=== PATIENT | male | born 1980 | race Hispanic/Latino ===

== ENCOUNTER 2025-01-24 02:32 | Emergency (ER) | payer SELFPAY ==
[~2025-01-24] VITALS: Ht 162.6 cm; Wt 78.9 kg
--- NOTE | 2025-01-24 03:07 | ERN ---
General Chief Complaint: Knee Injury/Swelling Stated Complaint: C/O PAIN TO RT KNEE RADIATING TO GROIN AREA. Time Seen by MD: 03:06 History of Present Illness Initial Comments Patient is a healthy 44-year-old male woke up from sleep with the pain in his right knee. When he tried to get up out of bed he fell onto the floor in the pain then started to radiat up to his groin. Was unable to dress himself and he had to rely on his girlfriend to help him get dressed and help him get to the emergency room. He has no other past medical history. Allergies: Coded Allergies: No Known Drug Allergies (Unverified Allergy, Unknown, 01/24/25) Past Medical History Past Medical History: Diabetes-Type II Past Surgical History: None Constitutional: (-) chills, (-) diaphoresis, (-) fever, (-) malaise, (-) weakness, (-) other documentation EENTM: (-) eye pain, (-) blurred vision, (-) tearing, (-) double vision, (-) ear pain, (-) ear discharge, (-) nose pain, (-) nose congestion, (-) throat pain, (-) Throat swelling, (-) mouth pain, (-) tooth pain, (-) mouth swelling, (-) other documentation Respiratory: (-) cough, (-) orthopnea, (-) short of breath, (-) stridor, (-) wheezing, (-) other documentation Cardiovascular: (-) chest pain, (-) edema, (-) palpitations, (-) syncope, (-) dyspnea on exertion, (-) other documentation Gastrointestinal/Abdominal: (-) nausea, (-) vomiting, (-) diarrhea, (-) abdominal pain, (-) abdominal distention, (-) constipation, (-) rectal bleeding, (-) dark stool/melena, (-) other documentation Musculoskeletal: (-) Neck pain, (-) back pain, (-) Flank Pain, (-) joint pain, (-) joint swelling, (-) muscle pain, (-) muscle stiffness, (-) gout, (-) other documentation Skin: (-) laceration, (-) contusion, (-) abrasion, (-) abscess, (-) rash, (-) change in color, (-) change in hair, (-) change in nails, (-) diaphoresis, (-) dryness, (-) other documentation Physical Exam General Appearance: (+) mild distress Orientation: (+) oriented x 3 Head/Face Trauma: No Eye: bilateral eye normal inspection, bilateral eye PERRL, bilateral eye EOMI Ear, Nose, Throat: (+) hearing grossly normal, (+) normal ENT inspection Neck: (+) normal inspection Respiratory: (+) chest non-tender, (+) lungs clear, (+) well ventilated Heart: (+) regular, (+) no gallop Vascular: (+) no edema, (+) normal peripheral pulse Gastrointestinal: (+) soft, (+) non-tender, (+) no organomegaly Extremities: (+) normal inspection, (+) no calf tenderness Extremities Comment Patient's right lower extremity has a normal appearance but is extremely difficult to move without causing the patient pain. Even slight flexion and extensions of his knee cause problems. In addition when he flexes his knee there seems to be a quick like a ligament glancing across the joint. Distal pulses intact. Negative Homans sign. No swelling of the calf knee or thigh. Results Laboratory and Microbiology Lab and Micro Result Laboratory Tests Test 01/24/25 03:53 01/24/25 04:02 Sodium Level 140 mmol/L (136-145) Potassium Level 4.1 mmol/L (3.5-5.1) Chloride Level 103 mmol/L (101-111) Carbon Dioxide Level 27 mmol/L (21-32) Blood Urea Nitrogen 20 mg/dL (7-18) H Creatinine 0.8 mg/dL (0.5-1.3) Glomerular Filtration Rate Calc 111 mL/min (>90) Random Glucose 119 mg/dL (70-105) H Total Calcium 8.7 mg/dL (8.5-10.1) Total Bilirubin 0.9 mg/dL (0.2-1.0) Aspartate Amino Transf (AST/SGOT) 26 U/L (10-37) Alanine Aminotransferase (ALT/SGPT) 31 U/L (12-78) Alkaline Phosphatase 70 U/L (50-136) Total Protein 7.6 g/dL (6.0-8.3) Albumin 3.7 g/dL (3.5-5.0) White Blood Count 6.3 K/uL (4.8-10.8) Red Blood Count 4.58 MIL/uL (4.50-6.20) Hemoglobin 14.0 g/dL (14.0-18.0) Hematocrit 41.4 % (42-54) L Mean Corpuscular Volume 90.4 fL (79-99) Mean Corpuscular Hemoglobin 30.6 pg (27.0-33.0) Mean Corpuscular Hemoglobin Concent 33.8 g/dL (32.0-36.0) Red Cell Distribution Width 11.6 % (11.0-15.5) Platelet Count 327 K/uL (130-400) Mean Platelet Volume 9.4 fL (7.5-10.5) Immature Granulocyte % (Auto) 0.3 % (0-1) Neutrophils (%) (Auto) 52.9 % (40.0-77.0) Lymphocytes (%) (Auto) 30.4 % (21.0-51.0) Monocytes (%) (Auto) 12.4 % (3.0-13.0) Eosinophils (%) (Auto) 3.0 % (0.0-8.0) Basophils (%) (Auto) 1.0 % (0.0-5.0) Neutrophils # (Auto) 3.3 K/uL (1.8-7.7) Lymphocytes # (Auto) 1.9 K/uL (1.0-4.8) Monocytes # (Auto) 0.8 K/uL (0.1-1.0) Eosinophils # (Auto) 0.19 K/uL (0.00-0.70) Basophils # (Auto) 0.06 K/uL (0.00-0.20) Absolute Immature Granulocyte (auto 0.02 K/uL (0-1) Nucleated Red Blood Cells 0.0 % (0.0-0.19) EKG/XRAY/US/CT/MRI CT Scan Comment [id number] [address] IMAGING REPORT Signed PATIENT: KRZYSZTOF DELANEY MR#: [id number] : 1980 SEX: M AGE: 44 LOCATION: [facility] ORDER 4 STATUS: REG ER REPORT#: [id number] SERVICE 2 REASON: unable to bear weight right knee ORDERING PHYSICIAN: GOLD MARROQUIN MD PROCEDURE: LOW EXT W - CT LOW EXT W/CONTRAST EXAM: CT right Knee, with IV contrast CLINICAL HISTORY: unable to bear weight right knee TECHNIQUE: Axial images were acquired through the right knee with IV contrast. Reformatted images were reviewed. COMPARISON: None provided. FINDINGS: BONES: No acute fracture or aggressive appearing osseous lesion. JOINTS: Small joint effusion. No dislocation. The joint spaces are normal. SOFT TISSUES: The soft tissues are unremarkable. IMPRESSION: Small right knee joint effusion. Otherwise, unremarkable contrast-enhanced CT of the right knee. /[place] DICTATED BY: ANAHI WYATT MD DATE: 01/24/25830 ELECTRONICALLY SIGNED BY: ANAHI WYATT MD DATE: 01/24/25830 [facility] MDM: Differential diagnosis: Knee strain, patellar fracture, knee dislocation, Rationale: Tests considered and ordered secondary to shared decision making include: Previous outside records reviewed: Old ER visits. Risk of complication and/or morbidity or mortality of patient management: None Medications-Per medication reconciliation Need for hospitalization: Patient does not meet criteria for hospitalization. Patient is a 44-year-old gentleman coming in complaining of right knee pain. On physical exam patient is very tender to palpation of the anterior portion of the knee. Patient also states that he has been unable to bear weight fully on the knee when he is ambulating. Due to the exacerbating presentation CT needed to be ordered which was ordered no acute findings were present. Patient will be discharged in stable condition with a diagnosis of knee strain. Knee immobilizer was provided and did advised him appropriate follow up with PCP in 1-2 days for ongoing evaluation and management. ED Course Orders Procedure Category Date Status Time Triamcinolone Acet PHA 01/24/25 Complete 40mg/Ml 1ml (Kenalog 03:30 Orphenadrine Citrate PHA 01/24/25 Complete (Norflex) 03:30 Lactated Ringers PHA 01/24/25 Complete 1000ml (Lactated 03:29 Cbc With Differential LAB 01/24/25 Complete 03:53 Comprehensive LAB 01/24/25 Complete Metabolic Panel 03:53 Ct Low Ext W/Contrast CT 01/24/25 Resulted 05:03 Iohexol (Omnipaque) PHA 01/24/25 Complete 06:20 Ketorolac PHA 01/24/25 Complete Tromethamine 30mg/Ml 06:30 Current Medications Medications (Trade) Dose Ordered Sig/Sergio Route PRN Reason Start Time Stop Time Status Last Admin Dose Admin Iohexol (Omnipaque) 75 ml STK-MED ONCE IV 01/24/25 06:20 01/24/25 06:20 DC Ketorolac Tromethamine (toRADol) 30 mg ONCE ONCE IVP 01/24/25 06:30 01/24/25 06:31 DC 01/24/25 06:53 Lactated Ringer's (Lactated Ringers 1000ml) 1,000 ml BOLUS STAT IV 01/24/25 03:29 01/24/25 03:38 DC 01/24/25 04:07 Orphenadrine Citrate (Norflex) 60 mg ONCE ONCE IM 01/24/25 03:30 01/24/25 03:38 DC 01/24/25 04:07 Triamcinolone Acetonide (Kenalog 40) 40 mg ONCE ONCE SQ 01/24/25 03:30 01/24/25 03:38 DC 01/24/25 04:07 Vital Signs Date Time Temp Pulse Resp B/P (MAP) Pulse Ox O2 Delivery O2 Flow Rate FiO2 01/24/25 07:26 98.2 62 18 144/84 99 Room Air* 0 01/24/25 06:17 63 19 136/92 98 Room Air* 0 21 01/24/25 02:52 98.2 68 18 139/90 98 Room Air* 0 21 01/24/25 02:33 97.0 65 20 147/94 97 Room Air DX & DISP Disposition: Discharge Departure Impression: Primary Impression: Strain of knee and leg, right Condition: Stable Scripts Naproxen (Naproxen) 500 Mg Tablet 1 TAB PO BID for pain for 7 Days, #14 TAB 0 Refills Prov: THALIA VALENCIA MD 01/24/25 Methocarbamol (Robaxin) 750 Mg Tab 1 TAB PO BID for 7 Days, #14 TAB 0 Refills Prov: THALIA VALENCIA MD 01/24/25 Additional Instructions: FOLLOW-UP WITH PRIMARY CARE PROVIDER IN 1 TO 2 DAYS. TAKE MEDICATIONS DIRECTED HERE IN THE EMERGENCY ROOM. OKAY TO CONTINUE HOME MEDICATIONS UNLESS OTHERWISE DISCUSSED DURING YOUR VISIT IN THE EMERGENCY ROOM TODAY. RETURN TO YOUR NEAREST EMERGENCY ROOM IF SYMPTOMS WORSEN OR IF THERE IS NO IMPROVEMENT. CALL 911 IF YOU NEED IMMEDIATE ASSISTANCE. TAKE TYLENOL [id number] NEEDED AND IF NO CONTRAINDICATIONS ARE PRESENT. INCREASE ORAL HYDRATION. A WOUND CULTURE OR URINE CULTURE WAS ORDERED HERE IN THE EMERGENCY ROOM DEPARTMENT PLEASE FOLLOW-UP WITH PRIMARY CARE PROVIDER AND ADVISE THEM TO GET REPORTS FROM OUR FACILITY. IF YOU HAD ANY ROHIT WRAP/SPLINTS THAT WERE APPLIED HERE, PLEASE DO NOT REMOVE THEM UNTIL YOU SEE YOUR PRIMARY CARE OR SPECIALTY. Referrals: Referrals: SELF,REFERRAL (PCP) SCOT SIMMS MD Time of Disposition: 08:07 GOLD MARROQUIN MD Jan 24, 2025 03:07 THALIA VALENCIA MD Jan 24, 2025 08:00
[2025-01-24] MEDS: ORPHENADRINE 60MG/2ML IM ONE (04:07)
[2025-01-24] MEDS: TRIAMCINOLONE ACETONIDE 40 MG/ML 1ML VIAL SQ ONE (04:07)
[2025-01-24] MEDS: LACTATED RINGERS 1000ML IV STA (04:07)
[2025-01-24 04:10] LABS: IMMATURE GRANULOCYTE ABSOLUTE 0.02 K/uL (0-1); NUCLEATED RED BLOOD CELLS 0.0 % (0.0-0.19); PLATELET COUNT (AUTO) 327 K/uL (130-400); RED BLOOD CELL COUNT(AUTO) 4.58 MIL/uL (4.50-6.20); RED CELL DISTRIBUTION WIDTH 11.6 % (11.0-15.5); WHITE BLOOD COUNT (AUTO) 6.3 K/uL (4.8-10.8)
[2025-01-24 04:21] LABS: CREATININE 0.8 mg/dL (0.5-1.3); GLOMERULAR FILTR. RATE CALC 111.0 mL/min (>90); GLUCOSE,RANDOM 119.0 mg/dL (70-105); SODIUM SERUM 140.0 mmol/L (136-145); UREA NITROGEN, BLOOD 20.0 mg/dL (7-18)
[2025-01-24 04:26] LABS: ASPARTATE AMINOTRANSFERASE 26.0 U/L (10-37); TOTAL PROTEIN, SERUM 7.6 g/dL (6.0-8.3)
[2025-01-24] MEDS ORDERED: IOHEXOL-350 75 ML VIAL IV ONE (06:20)
--- NOTE | 2025-01-24 07:32 | HMCIMG ---
EXAM: CT right Knee, with IV contrast CLINICAL HISTORY: unable to bear weight right knee TECHNIQUE: Axial images were acquired through the right knee with IV contrast. Reformatted images were reviewed. COMPARISON: None provided. FINDINGS: BONES: No acute fracture or aggressive appearing osseous lesion. JOINTS: Small joint effusion. No dislocation. The joint spaces are normal. SOFT TISSUES: The soft tissues are unremarkable. IMPRESSION: Small right knee joint effusion. Otherwise, unremarkable contrast-enhanced CT of the right knee. /[place]
[2025-01-24] MEDS ORDERED: METH-662 PO (08:08)
[2025-01-24] MEDS ORDERED: NAPR-1194 PO (08:08)
[2025-01-24 08:35] VITALS: BP 135/79; PULSE 63; RESP 16; TEMP 98.2; O2SAT 97
== END 2025-01-24 08:50 | disposition home or self-care (01) ==
LOC: EDH 02:32
DX: S86.911A Strain of unspecified muscle(s) and tendon(s) at lower leg level, right leg, initial encounter (principal); E11.9 Type 2 diabetes mellitus without complications; W18.39XA Other fall on same level, initial encounter; Y93.89 Activity, other specified; Y92.89 Other specified places as the place of occurrence of the external cause; Y99.8 Other external cause status
CPT/HCPCS: 99285; 96374; 73701; 96361; 80053; 85025; 36415; 96372 ×2; J1885; J7120; J3301; Q9967; J2360